=== PATIENT | male | born 2000 | race Caucasian/White ===

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

== ENCOUNTER 2021-01-04 10:20 | Emergency (ER) | payer OTHER ==
[~2021-01-04] VITALS: Ht 182.9 cm; Wt 72.7 kg
[~2021-01-04 10:20] MED LIST changes: +IBUPROFEN600 MG PO; +MUCINEX DM ER1 EAC1 PO; +TAMIFLU75 MG PO
[2021-01-04 10:26] VITALS: BP 137/76; Ht 182.9 cm; Wt 72.7 kg
[2021-01-04] MEDS ORDERED: ORAL ANALGESIC9 GM TOPICAL (10:35)
[2021-01-04] MEDS ORDERED: IBUPROFEN800 MG PO (10:35)
[2021-01-04] MEDS ORDERED: CYCLOBENZAPRINE10 MG PO (10:35)
[2021-01-04] MEDS ORDERED: PENICILLIN V P500 MG PO (10:35)
[2021-01-04] MEDS ORDERED: ACETAMINOPHEN500 M1 PO (10:35)
== END 2021-01-04 10:44 | disposition home or self-care (01) ==
LOC: D.ER 10:20
DX: S02.5XXA Fracture of tooth (traumatic), initial encounter for closed fracture (principal); K02.9 Dental caries, unspecified; K05.10 Chronic gingivitis, plaque induced; Z72.0 Tobacco use